=== PATIENT | male | born 1965 | race Two or more races ===

== ENCOUNTER → 2024-01-05 | Emergency (ER) | payer OTHER ==
[~2024-01-05] VITALS: Ht 182.9 cm; Wt 108.0 kg
[~2024-01-05] MED LIST: BUDESONIDE 0.5 MG/2 ML AMPUL.NEB IH STA; LEVALBUTEROL HCL 1.25 MG/3 ML SOLUTION IH STA; METHYLPREDNISOLONE SOD SUCC 125 MG VIAL IV STA
[2024-01-05 10:03] LABS: HEMATOCRIT 41.8 % (39.0-48.0); HEMOGLOBIN 14.5 g/dL (13-16.00); MEAN CELL VOLUME 98.5 fL (80.0-100.00); MEAN CORPUSCULAR HEMOGLOBIN 34.1 pg (27.00-32.0); MEAN CORPUSCULAR HGB CONC 34.7 g/dl (32.0-36.0); PLATELET COUNT 161 K/uL (150-450); RED BLOOD COUNT 4.25 M/uL (4.00-6.00); RED CELL DISTRIBUTION WIDTH 12.8 % (11.5-14.5)
[2024-01-05 10:18] LABS: BILIRUBIN TOTAL 1.01 mg/dL (0.3-1.2); BILIRUBIN,CONJUGATED 0.23 mg/dL (0.0-0.2); BILIRUBIN,UNCONJUGATED 0.78 mg/dL (0.0-0.6); CALCIUM 9.3 mg/dL (8.5-10.1); CREATININE SERUM 0.8 mg/dL (0.70-1.30); GFR 99.29; POTASSIUM 3.74 mEq/L (3.5-5.1); TOTAL PROTEIN 8.7 gm/dL (6.4-8.2)
[2024-01-05 11:02] LABS: PH,URINE 5.5 (5.0-8.0); URINE APPEARANCE Clear; URINE BILIRRUBIN Negative (NEGATIVE); URINE BLOOD Small; URINE COLOR Dark Yellow; URINE GLUCOSE Negative (NEGATIVE); URINE KETONE Trace (NEGATIVE); URINE LEUKOCYTE Negative; URINE NITRATE Negative; URINE PROTEIN 30 (NEGATIVE)
[2024-01-05 11:06] LABS: URINE BACTERIA 7.5 uL (0.0-1933); URINE RBC 22.4 uL (0.0-20.8); URINE WBC 10.1 uL (0.0-23.2)
== END | disposition home or self-care (01) ==
LOC: ER 08:28
PROVIDERS: General Practice
DX: J44.89 Other specified chronic obstructive pulmonary disease (principal); J45.901 Unspecified asthma with (acute) exacerbation; Z91.018 Allergy to other foods; Z20.822 Contact with and (suspected) exposure to COVID-19
CPT/HCPCS: 36415; 71046; 93005; 94640; 96365; 99283; J3490